=== PATIENT | male | born 1995 | race African-American/Black ===

== ENCOUNTER 2016-09-03 19:23 | Emergency (ER) | payer OTHER ==
[~2016-09-03] VITALS: Ht 172.7 cm; Wt 68.0 kg
[~2016-09-03 19:23] MED LIST: IBUPROFEN 600600 M1 PO; KEFLEX500 MG PO; NOHOMEMEDICATIONS
[2016-09-03 19:24] VITALS: BP 136/84
[2016-09-03 20:05] LABS: URINE BILIRUBIN NEGATIVE (Negative); URINE BLOOD NEGATIVE (Negative); URINE COLOR YELLOW; URINE GLUCOSE-RANDOM* NEGATIVE (Negative); URINE KETONES NEGATIVE (Negative); URINE NITRITE NEGATIVE (Negative); URINE PROTEIN (DIPSTICK) NEGATIVE (Negative); URINE SPECIFIC GRAVITY >= 1.030 (1.003-1.035)
[2016-09-06 22:08] LABS: CHLAMYDIA TRACHOMATIS-PCR Negative (Negative)
== END 2016-09-03 20:00 | disposition home or self-care (01) ==
LOC: ER 19:23
PROVIDERS: Nurse Practitioner Family
DX: Z11.3 Encounter for screening for infections with a predominantly sexual mode of transmission (principal)

== ENCOUNTER 2017-08-08 20:08 | Emergency (ER) | payer OTHER ==
[~2017-08-08] VITALS: Ht 175.3 cm; Wt 77.1 kg
[2017-08-08 20:24] VITALS: BP 121/74
== END 2017-08-08 20:34 | disposition home or self-care (01) ==
LOC: ER 20:08
DX: S01.01XD Laceration without foreign body of scalp, subsequent encounter (principal); X58.XXXD Exposure to other specified factors, subsequent encounter

== ENCOUNTER 2020-01-19 18:25 | Emergency (ER) | payer OTHER ==
[~2020-01-19] VITALS: Ht 175.3 cm; Wt 72.6 kg
[2020-01-19 19:15] VITALS: BP 119/59
== END 2020-01-19 19:15 | disposition home or self-care (01) ==
LOC: ER 18:25
DX: R40.4 Transient alteration of awareness (principal); R25.1 Tremor, unspecified